=== PATIENT | female | born 1975 | race African-American/Black ===

== ENCOUNTER → 2016-09-16 | Outpatient (CLI) | payer OTHER | LOC: M LAB 16:40 | PROVIDERS: ATTEND Student in an Organized Health Care Education/Training Program | DX: Z32.01 Encounter for pregnancy test, result positive (principal) ==

== ENCOUNTER → 2016-09-27 | Outpatient (CLI) | payer OTHER ==
--- NOTE | 2016-09-27 10:42 | REP ---
Emergency first trimester OB sonography: History: 8 week 2 day gestation with known uterine fibroids. Supervision of . Findings: Transabdominal scanning demonstrates a viable single intrauterine gestation in a free-floating lie. The embryonic pole measures 14 mm in crown-rump length. This corresponds with a 7 week 5 day gestational age estimate. heart rate is recorded at 147 beats per minute. No subchorionic hemorrhage is seen. There is 3.5 x 2.5 x 1.8 cm cyst in the maternal right ovary consistent with corpus luteum. No gross anomaly is seen. Multiple uterine fibroids are noted. The largest fibroid is subserosal in the anterior uterus measuring 10.2 x 6.9 x 8.0 cm. There are two fibroids at the lower uterine segment near the region of the internal cervical os. These measure 4.0 and 4.8 cm in greatest diameter respectively. No free fluid is seen. Impression: Viable single intrauterine gestation at 7 weeks 5 days by crown-rump length. KENISHA by sonography May 11, 2017. Multiple sizable uterine leiomyomata seen ranging up to 10.2 cm in diameter. Signed by Odin Hampton MD 09/27/2016 01:08 P
== END ==
LOC: M RAD 09:44
PROVIDERS: ATTEND Advanced Practice Midwife
DX: Z36 Encounter for antenatal screening of mother (principal); O34.11 Maternal care for benign tumor of corpus uteri, first trimester; Z3A.08 8 weeks gestation of pregnancy